=== PATIENT | female | born 1965 | race Caucasian/White ===

== ENCOUNTER 2020-11-11 23:46 | Emergency (ER) | payer BC ==
[2020-11-11] MEDS ORDERED: SODIUM CHLORIDE 0.9% 1000ML 1,000 ML IVS ONE (23:54)
[2020-11-11] MEDS ORDERED: ONDANSETRON INJ 4 MG/2 ML VIAL IV ONE (23:54)
[2020-11-11] MEDS ORDERED: SODIUM CHLORIDE 0.9% (FLUSH) 10 ML SYG IV PRN (23:54)
--- NOTE | 2020-11-11 23:55 | ED.PDOC ---
History of Present Illness - General Time Seen by Provider: 11/11/20 23:53 Source: patient - History of Present Illness Initial Comments: At bedside at 0005 55-year-old female with past medical history of hypertension who presents with chief complaint of nausea and vomiting. Patient reports symptoms began rapidly about 3 hours ago at home. She reports approximately 5 episodes of nonbloody nonbilious emesis along with several episodes of dry heaving at home. She additionally reports new onset of abdominal pain. Reported some generalized bloating gassy discomfort to the lower abdomen prior to onset of nausea and vomiting. She reports now that the pain is worse, constant, gassy/bloating, 9/10 severity. Pain primarily seems to be in the suprapubic and left lower quadrant regions but radiates across the entire lower abdomen and also radiates to the bilateral lower flank regions. No medications taken at home for relief. Reports that she ate chicken spaghetti prior to symptom onset. Other family members also ate the same dish but are not ill. Denies any fevers, chills, chest pain, cough, dyspnea, sore throat, headaches, body aches, diarrhea. She does report she has been having small amount of blood in the urine in the past 2 days but denies any dysuria or frequency. Patient lives in [place] and is currently visiting the area. Her PCP in [place]. Previous abdominal surgeries include and hysterectomy. Allergies/Adverse Reactions: Allergies Aspirin [From Percodan] Allergy (Verified 11/12/20 00:31) Oxycodone [From Percodan] Allergy (Verified 11/12/20 00:31) Home Medications: Ambulatory Orders Acetamin W/Cod #3 Tab [Tylenol w/CODEINE #3] 1 ea PO Q6H PRN 7 Days #10 tab 11/12/20 Ciprofloxacin HCl [Ciprofloxacin Hydrochlori] 500 mg PO BID 7 Days #14 tab 11/12/20 Ondansetron Odt [Zofran ODT] 8 mg PO Q8H PRN 5 Days #10 tab 11/12/20 Tamsulosin [Flomax] 0.4 mg PO DAILY 7 Days #7 cap 11/12/20 Review of Systems - Review of Systems Review of Systems: 11/12/20 00:24 as per HPI All other Systems: Reviewed and Negative Family Medical History - Family History Mother Family History: Unknown Physical Exam - Physical Exam General Appearance: Alert, No apparent distress, Restless Eye Exam: bilateral normal Ears, Nose, Throat: hearing grossly normal, normal ENT inspection, normal pharynx Neck: full range of motion, supple, normal inspection Respiratory: lungs clear, normal breath sounds, no respiratory distress, no accessory muscle use Cardiovascular/Chest: normal peripheral pulses, regular rate, rhythm, no edema, no gallop, no JVD, no murmur Peripheral Pulses: radial,right: 2+, radial,left: 2+ Gastrointestinal/Abdominal: soft, no organomegaly, abnormal bowel sounds - diminished, tenderness - Moderate tenderness with slight guarding to the suprapubic and left lower quadrant regions, other - No noted masses or abdominal distention Back Exam: normal inspection, other - Mild bilateral lower flank tenderness Extremity: normal range of motion, non-tender, normal inspection, no pedal edema, no calf tenderness Neurologic: marketing program coordinator II-XII nml as tested, no motor/sensory deficits, alert, normal mood/affect, oriented x 3 Progress - Progress Progress: 11/12/20 00:26 Acute abdominal pain -Consider acute gastroenteritis, foodborne illness, UTI, kidney stone, diverticulitis, appendicitis, pancreatitis, sepsis, colitis, dehydration, metabolic derangement, diabetes, gastroparesis, SBO/ileus, ischemic colitis, drug abuse, ACS, other -Patient stable but appears very uncomfortable and nauseous upon ED arrival. She does have significant lower abdominal tenderness on exam but abdomen is soft and nondistended -Obtain stat abdominal work-up, UA, lactate, rapid Covid and flu testing, strep, EKG. Anticipate possible CT imaging of the abdomen/pelvis -Place peripheral IV, 1 L normal saline bolus, Zofran 4 mg IV 11/12/20 01:14 -Patient still with significant nausea and dry heaving episodes despite the Zofran. We will add Phenergan 12.5 mg IV for nausea. Otherwise she remains stable. Her labs reveal mild leukocytosis of 12,000 with left shift and no bandemia. She does have elevated glucose level of 236, which is consistent with likely diabetes. BUN 25 and creatinine 1.1 suggestive of mild dehydration. -We will obtain CT imaging of the abdomen and pelvis for further evaluation. 11/12/20 02:05 -CT imaging reveals 5 mm obstructing stone in the proximal left ureter with assoc'd moderate hydroureteronephrosis. No other acute processes noted. -Discussed findings with pt & diagnosis of ureteral stone. Given the size, I suspect good chance that she will be able to pass the stone with medical therapy. She continues to reports little pain relief with Fentanyl and antiemetics. Will add morphine 4 mg IV, Toradol 30 mg IV. Flomax 0.4 mg PO. Give Rocephin 1 g IV in ED given leukocytosis in setting of kidney stone. 11/12/20 02:59 -Pt reports pain is markedly improved. She is eager to go home. -Will send with Rx's for: Zofran PRN, Tylenol #3 PRN, Cipro 500 mg BID x7 days, Flomax 0.4 mg daily x7 days until stone passage -dc to home in good condition, return warnings discussed at length Rodrigue Rendon MD Billing #[id number] 11/11/20 23:54 IV Care:Saline Lock per Protoc QSHIFT Sodium Chloride 0.9% (Flush) [Saline Flush Syringe] 10 ml IV PRN PRN EKG STAT 11/12/20 00:26 STREP A SCREEN CULTURE Stat 11/12/20 01:02 Hold Metformin x 48Hrs [id number] 11/12/20 01:57 cefTRIAXone SODIUM [Rocephin] 1 gm Sodium Chl 0.9% 50Ml Min-Bag+ [NS 50ml MINI-BAG+] 50 ml IVPB ONCE 11/12/20 02:08 Ketorolac Tromethamine Inj [Toradol Inj] 30 mg IV ONCE ONE 11/12/20 23:54 EKG STAT Laboratory Results - last 24 hr 11/11/20 11/11/20 11/12/20 00:26 00:26 00:26 WBC 12.7 H RBC 4.50 Hgb 12.2 Hct 36.1 MCV 80.3 L MCH 27.1 MCHC 33.7 RDW 15.0 H Plt Count 288 MPV 8.6 Absolute Neuts (auto) 10.60 H Absolute Lymphs (auto) 1.40 Absolute Monos (auto) 0.50 Absolute Eos (auto) 0.10 Absolute Basos (auto) 0.10 Neutrophils % 83.1 H Lymphocytes % 11.4 L Monocytes % 3.9 Eosinophils % 0.8 L Basophils % 0.8 Sodium 139 Potassium 3.8 Chloride 99 L Carbon Dioxide 26 Anion Gap 17.8 BUN 25 H Creatinine 1.12 BUN/Creatinine Ratio 22.3 H Random Glucose 236 H Serum Osmolality 289.6 Calcium 9.2 Total Bilirubin 0.6 Direct Bilirubin 0.1 Indirect Bilirubin 0.5 AST 16 ALT 18 Alkaline Phosphatase 50 Serum Total Protein 7.3 Albumin 4.4 Amylase 30 Lipase 33 Urine Color Urine Appearance Urine pH Ur Specific [place] Urine Protein Urine Glucose (UA) Urine Ketones Urine Blood Urine Nitrite Urine Bilirubin Urine Urobilinogen Ur Leukocyte Esterase Urine RBC Urine WBC Ur Epithelial Cells Urine Bacteria Group A Strep Rapid Negative 11/12/20 01:15 WBC RBC Hgb Hct MCV MCH MCHC RDW Plt Count MPV Absolute Neuts (auto) Absolute Lymphs (auto) Absolute Monos (auto) Absolute Eos (auto) Absolute Basos (auto) Neutrophils % Lymphocytes % Monocytes % Eosinophils % Basophils % Sodium Potassium Chloride Carbon Dioxide Anion Gap BUN Creatinine BUN/Creatinine Ratio Random Glucose Serum Osmolality Calcium Total Bilirubin Direct Bilirubin Indirect Bilirubin AST ALT Alkaline Phosphatase Serum Total Protein Albumin Amylase Lipase Urine Color Red H Urine Appearance Cloudy Urine pH 5.5 Ur Specific [place] 1.025 Urine Protein 100 H Urine Glucose (UA) 100 H Urine Ketones Trace Urine Blood Large H Urine Nitrite Negative Urine Bilirubin Small H Urine Urobilinogen 0.2 Ur Leukocyte Esterase Negative Urine RBC Tntc H Urine WBC 1-3 Ur Epithelial Cells 1-3 Urine Bacteria Rare Group A Strep Rapid - EKG/XRAY/CT EKG: Sinus - Normal sinus rhythm, heart rate 70, no ST elevations or Q waves noted, nonspecific T wave inversions noted in septal leads, axis normal, inte rvals normal, no prior EKG for comparison Departure - Departure Clinical Impression: Ureterolithiasis Time of Disposition: 02:55 Disposition: Discharge to Home or Self Care Condition: Fair Instructions: Kidney Stones (DC) Diet: resume usual diet Activity: increase activity as tolerated Prescriptions: Ciprofloxacin HCl [Ciprofloxacin Hydrochlori] 500 mg PO BID 7 Days #14 tab Tamsulosin [Flomax] 0.4 mg PO DAILY 7 Days #7 cap Acetamin W/Cod #3 Tab [Tylenol w/CODEINE #3] 1 ea PO Q6H PRN 7 Days #10 tab PRN Reason: Pain Ondansetron Odt [Zofran ODT] 8 mg PO Q8H PRN 5 Days #10 tab PRN Reason: Nausea Home Medications: Ambulatory Orders Acetamin W/Cod #3 Tab [Tylenol w/CODEINE #3] 1 ea PO Q6H PRN 7 Days #10 tab 11/12/20 Ciprofloxacin HCl [Ciprofloxacin Hydrochlori] 500 mg PO BID 7 Days #14 tab 11/12/20 Ondansetron Odt [Zofran ODT] 8 mg PO Q8H PRN 5 Days #10 tab 11/12/20 Tamsulosin [Flomax] 0.4 mg PO DAILY 7 Days #7 cap 11/12/20 Additional Instructions: Follow the instruction packet for kidney stones and adhere to the recommended dietary changes to reduce your risk of repeat kidney stones. It is recommended to strain your urine so that you can catch the stone to know that you have passed it and to be able to collect it and bring it into your regular doctor for lab evaluation at your next visit. Remain well-hydrated and gradually advance your diet and activity level as tolerated. Continue take [id number] medications as needed for pain control such as ibuprofen 800 mg every 8 hours as needed and Tylenol 650 mg every 6 hours as needed. You may take Tylenol No. 3 as directed for breakthrough pain but do not drive or operate heavy machinery while taking. You may take the Zofran as directed for nausea. Take the antibiotics as directed and finish the full course even if well. Take the Flomax once daily as directed until passage of kidney stone. Return to the ED if you develop worsening of symptoms or other concerning symptoms such as uncontrolled pain, intractable nausea and vomiting, fevers, etc. Follow-up with your primary care doctor is recommended in the next 5 to 7 days for repeat evaluation or sooner as needed.
[2020-11-12] MEDS ORDERED: PROMETHAZINE HCL INJ 12.5 MG in SODIUM CHLORIDE 0.9% 50ML 50 ML IVPB ONE (01:10)
[2020-11-12] MEDS ORDERED: fentaNYL CITRATE INJ 50 MCG/ML 2 ML AMP IV ONE (01:26)
[2020-11-12] MEDS ORDERED: TAMSULOSIN 0.4 MG CAP PO ONE (01:57)
[2020-11-12] MEDS ORDERED: cefTRIAXone SODIUM 1 GM in SODIUM CHL 0.9% 50ML MIN-BAG+ 50 ML IVPB ONE (01:57)
[2020-11-12] MEDS ORDERED: MORPHINE SULFATE INJ 10 MG/ML VIAL IV ONE (01:57)
--- NOTE | 2020-11-12 02:02 | CT ---
EXAM DESCRIPTION: Abdomen/Pelvis w/Contrast 11/12/2020 1:56 AM [employer] [employer] CLINICAL HISTORY: 55 years, Female, acute lower abdominal pain, intractable vomiting COMPARISON: None. PROCEDURE: Contrast-enhanced images of the abdomen and pelvis were performed utilizing 2 mm slice thickness at 2 mm interval reconstruction from the lung bases to the ischial tuberosities after the administration of IV contrast. No dosing amount was providing for interpretation. In addition multiplanar reformats in the coronal and sagittal plane were obtained and reviewed. An individualized dose optimization technique, Automated Exposure Control, was utilized for the performed procedure. FINDINGS: The lung bases demonstrate to be clear. The liver, gallbladder, pancreas, spleen and adrenal glands demonstrate to be unremarkable, no focal lesions are noted. There is left hydronephrosis and left hydroureter up to the level of the proximal ureter at the level of the intervertebral disc level of L3/L4 where there is a 4.1 x 5.8 mm calculus on axial image 40/91 and coronal 79/153. The left kidney demonstrate no significant residual calculus. The right kidney demonstrate to be within normal limits with no evidence for hydronephrosis. Grossly the unopacified stomach, small bowel and large bowel demonstrate to be within normal limits. Fecal residue and underdistention within the large bowel limits the evaluation. There is no evidence for bowel dilatation and/or free air. There is diverticulosis within the sigmoid colon. The appendix is normal. The urinary bladder demonstrate to be unremarkable. The uterus is absent. The aorta demonstrate to be normal. There is no retroperitoneal lymphadenopathy. There is no evidence for ascites and/or significant abnormal fluid collections. The rest of the soft tissue and bony structures are within normal limits. IMPRESSION: LEFT HYDRONEPHROSIS AND LEFT HYDROURETER EXTENDING TO THE PROXIMAL ASPECT AT THE LEVEL OF THE INTERVERTEBRAL DISC LEVEL OF L3/L4 WHERE THERE IS A LEFT URETER WHERE THERE IS A 4.1 X 5.8 MM OBSTRUCTIVE URETER CALCULUS. DIVERTICULOSIS. STATUS POST HYSTERECTOMY. Electronically signed by: Sandro Russo MD 11/12/2020 2:00 AM [employer]
[2020-11-12] MEDS ORDERED: KETOROLAC TROMETHAMINE INJ 30 MG/ML VIAL IV ONE (02:08)
[2020-11-12] MEDS ORDERED: TAMSULOSIN 0.4 MG CAP ONE (02:11)
[2020-11-12 02:22] VITALS: TEMP 97.5
[2020-11-12] MEDS ORDERED: ONDANSETRON ODT (ER DISP) 8 MG TAB PO ONE (02:54)
[2020-11-12] MEDS ORDERED: ACETAMINOPHEN W/COD #3 TAB (ER Disp) PO ONE (02:54)
[2020-11-12 03:00] VITALS: BP 127/76; O2SAT 98
== END 2020-11-12 03:08 | disposition home or self-care (01) ==
LOC: ER 23:46
DX: N13.2 Hydronephrosis with renal and ureteral calculous obstruction (principal); R11.2 Nausea with vomiting, unspecified; I10 Essential (primary) hypertension; Z79.899 Other long term (current) drug therapy; Z88.5 Allergy status to narcotic agent; Z88.6 Allergy status to analgesic agent
CPT/HCPCS: 74177; 80048; 80076; 81001; 82150; 83690; 85025; 87070; 87502; 87635; 87880; 93005; A4216; J0696; J1885; J2270; J2405; J2550; J3010; J7030; J7050